=== PATIENT | male | born 1985 ===

== ENCOUNTER 2016-08-24 11:53 | Emergency (ER) | payer OTHER ==
[2016-08-24 11:55] VITALS: BMI 28.8
[2016-08-24 11:57] VITALS: TEMP 98.6
[2016-08-24 14:23] LABS: RBC URINE < 1 /hpf (0-3); URINE BILIRUBIN NEGATIVE (NEGATIVE); URINE BLOOD NEGATIVE (NEGATIVE); URINE COLOR STRAW (YELLOW); URINE GLUCOSE (UA) NEG (Normal); URINE KETONE NEGATIVE (NEGATIVE); URINE LEUKOCYTE ESTERASE NEG Leu/uL (Negative); URINE PROTEIN NEGATIVE (NEGATIVE); URINE UROBILINOGEN 0.2-1.0 mg/dL (0.2-1.0); WBC URINE < 1 /hpf (0-5)
--- NOTE | 2016-08-24 16:14 | US ---
HISTORY: R testicular pain TECHNIQUE: Realtime sonography through the scrotum with color and doppler flow. COMPARISON: None Available. FINDINGS: RIGHT TESTICLE: Right testicle measures approximately 4.7 x 2.3 x 3.2 cm. Normal echotexture and flow. RIGHT EPIDIDYMIS: Epididymal head measures approximately 0.8 x 0.7 x 0.9 cm . There is a small epididymal cyst that measures 5 mm occulta mentions likely representing a small spermatocele. . Normal flow. LEFT TESTICLE: Left testicle measures approximately 4.6 x 2.0 x 2.9 cm cm. Normal echotexture and flow. LEFT EPIDIDYMIS: Epididymal head measures approximately 1.0 x 0.6 x 0.7 cm cm. Grossly unremarkable appearance with normal flow. HYDROCELE: None. VARICOCELE: None. OTHER FINDINGS: None. IMPRESSION: Small cystic focus right epididymis likely representing a spermatocele. No evidence of torsion.
--- NOTE | 2016-08-24 18:17 | ED PDOC ---
HPI: Male Pain Time Seen by Provider: 08/24/16 12:16 Chief Complaint (Nursing): Male Genitourinary Chief Complaint (Provider): R testicular pain History Per: Patient History/Exam Limitations: no limitations Onset/Duration Of Symptoms: Days (7) Current Symptoms Are (Timing): Intermittent Episodes Quality Of Discomfort: Sharp Associated Symptoms: denies: Nausea, Vomiting, Diarrhea, Loss Of Appetite Alleviating Factors: None Additional Complaint(s): 31yo male c/o left testicular pain ongoing intermittently for 7 days. Denies urinary symptoms. Denies nausea/vomiting or diarrhea. Denies history of STDs. Denies trauma, penile discharge or hematuria. Past Medical History Reviewed: Historical Data, Nursing Documentation, Vital Signs Vital Signs: Last Vital Signs Temp 98.6 F 08/24/16 11:55 Pulse 108 H 08/24/16 11:55 Resp 19 08/24/16 11:55 BP 140/89 08/24/16 11:55 Pulse Ox 99 08/24/16 11:55 - Medical History PMH: No Chronic Diseases - Surgical History Surgical History: No Surg Hx - Family History Family History: States: Unknown Family Hx - Social History Current smoker - smoking cessation education provided: No - Home Medications Home Medications: Ambulatory Orders Medication Instructions Recorded Docusate Sodium [Colace] 100 mg PO BID PRN #10 capsule 08/27/16 oxyCODONE/Acetaminophen [Percocet 1 tab PO Q6H PRN #5 tab 08/27/16 5/325 mg Tab] - Allergies Allergies/Adverse Reactions: Allergies Allergy/AdvReac Type Severity Reaction Status Date / Time No Known Allergies Allergy Verified 08/27/16 12:01 Review of Systems ROS Statement: Except As Marked, All Systems Reviewed And Found Negative Constitutional: Negative for: Fever, Chills Cardiovascular: Negative for: Chest Pain, Palpitations Respiratory: Negative for: Cough, Hemoptysis Gastrointestinal: Negative for: Vomiting, Abdominal Pain Genitourinary Male: Positive for: Scrotal Pain Musculoskeletal: Negative for: Neck Pain, Shoulder Pain Skin: Negative for: Rash, Lesions, Jaundice Neurological: Negative for: Weakness, Numbness - ECG O2 Sat by Pulse Oximetry: 99 Medical Decision Making Medical Decision Making: bloodwork reviewed and unremarkable/ Testicular US report reviewed. CT report reviewed, +inguinal hernia without signs of incarceration. Referred to clinic for surgical eval. Disposition - Clinical Impression Clinical Impression: Inguinal hernia - Patient ED Disposition Is Patient to be Admitted: No Counseled Patient/Family Regarding: Studies Performed, Diagnosis, Need For Followup, Rx Given - Disposition Referrals: Kirti Zee MD [Staff Provider] - Disposition: Routine/Home Disposition Time: 18:04 Condition: STABLE Additional Instructions: See surgeon for further testing and treatment for your inguinal hernia. Return to ER for any worse or new symptoms. Instructions: Inguinal Hernia (ED) Print Language: ROMANIAN
--- NOTE | 2016-08-24 18:59 | CT ---
PROCEDURE: CT Abdomen and Pelvis without intravenous contrast HISTORY: R groin pain r/o hernia COMPARISON: None. TECHNIQUE: Technique. Contrast Dose: Radiation dose: Total exam DLP = 622 mGy-cm. This CT exam was performed using one or more of the following dose reduction techniques: Automated exposure control, adjustment of the mA and/or kV according to patient size, and/or use of iterative reconstruction technique. FINDINGS: LOWER THORAX: Unremarkable. LIVER: Unremarkable. No gross lesion or ductal dilatation. GALLBLADDER AND BILE DUCTS: Unremarkable. PANCREAS: Unremarkable. No gross lesion or ductal dilatation. SPLEEN: Unremarkable. ADRENALS: Unremarkable. No mass. KIDNEYS AND URETERS: Unremarkable. No hydronephrosis. No solid mass. VASCULATURE: Unremarkable. No aortic aneurysm. BOWEL: Unremarkable. No obstruction. No gross mural thickening. APPENDIX: Unremarkable. Normal appendix. PERITONEUM: Unremarkable. No free fluid. No free air. LYMPH NODES: Unremarkable. No enlarged lymph nodes. BLADDER: Unremarkable. REPRODUCTIVE: Unremarkable. BONES: No acute fracture. OTHER FINDINGS: Minimal right inguinal hernia containing omental fat. IMPRESSION: Minimal right inguinal hernia containing omental fat.
[2016-08-24 19:46] VITALS: BP 125/80; PULSE 75; RESP 16
[2016-09-06 16:18] VITALS: O2SAT 99
== END 2016-08-24 19:46 | disposition home or self-care (01) ==
LOC: H.ER 11:53
DX: K40.90 Unilateral inguinal hernia, without obstruction or gangrene, not specified as recurrent (principal)

== ENCOUNTER 2016-08-27 11:54 | Emergency (ER) | payer OTHER ==
[2016-08-27 11:54] VITALS: BMI 28.8
[2016-08-27 12:05] VITALS: BP 134/70; PULSE 104; RESP 16; TEMP 98.5; O2SAT 99
[2016-08-27] MEDS ORDERED: Sodium Chloride 0.9% 1,000 ML IV STA (12:42)
--- NOTE | 2016-08-27 13:20 | ED PDOC ---
HPI: Abdomen Time Seen by Provider: 08/27/16 12:00 Chief Complaint (Nursing): Abdominal Pain Chief Complaint (Provider): Abdominal Pain History Per: Patient History/Exam Limitations: no limitations Onset/Duration Of Symptoms: Days Current Symptoms Are (Timing): Still Present Severity: Mild Location Of Pain/Discomfort: Suprapubic Associated Symptoms: denies: Fever, Nausea, Vomiting, Diarrhea, Urinary Symptoms Exacerbating Factors: None Additional Complaint(s): Patient is a 31 year old male who presents to ED for right inguinal pain for awhile. States that he was evaluated in ED on Saturday, U/S and CT-abdomen performed, showing (+) small right inguinal hernia. Patient was referred to Dr. Zee as outpt but no pain medication was given. States pain continues and he does not have insurance for follow up. Denies vomiting or fever. Notes mild constipation Past Medical History Reviewed: Historical Data, Nursing Documentation, Vital Signs Vital Signs: Last Vital Signs Temp 98.5 F 08/27/16 12:02 Pulse 104 H 08/27/16 12:02 Resp 16 08/27/16 12:02 BP 134/70 08/27/16 12:02 Pulse Ox 99 08/27/16 14:38 - Medical History PMH: No Chronic Diseases - Surgical History Surgical History: No Surg Hx - Family History Family History: States: Unknown Family Hx - Social History Current smoker - smoking cessation education provided: No Alcohol: None Drugs: Denies - Home Medications Home Medications: Ambulatory Orders Medication Instructions Recorded Docusate Sodium [Colace] 100 mg PO BID PRN #10 capsule 08/27/16 oxyCODONE/Acetaminophen [Percocet 1 tab PO Q6H PRN #5 tab 08/27/16 5/325 mg Tab] - Allergies Allergies/Adverse Reactions: Allergies Allergy/AdvReac Type Severity Reaction Status Date / Time No Known Allergies Allergy Verified 08/27/16 12:01 Review of Systems ROS Statement: Except As Marked, All Systems Reviewed And Found Negative Constitutional: Negative for: Fever Gastrointestinal: Positive for: Abdominal Pain, Constipation. Negative for: Vomiting, Diarrhea Genitourinary Male: Negative for: Dysuria, Hematuria Physical Exam - Reviewed Nursing Documentation Reviewed: Yes Vital Signs Reviewed: Yes - Physical Exam Appears: Positive for: Non-toxic, No Acute Distress Skin: Positive for: Normal Color, Warm Eye Exam: Positive for: Normal appearance Neck: Positive for: Normal, Painless ROM Cardiovascular/Chest: Positive for: Regular Rate, Rhythm. Negative for: Murmur Respiratory: Positive for: Normal Breath Sounds. Negative for: Respiratory Distress Gastrointestinal/Abdominal: Positive for: Bowel Sounds, Soft, Hernia (right inguinal). Negative for: Tenderness, Distended, Guarding, Rebound Back: Positive for: Normal Inspection Extremity: Positive for: Normal ROM Neurologic/Psych: Positive for: Alert, Oriented - Laboratory Results Result Diagrams: 08/27/16 13:09 08/27/16 13:09 - ECG O2 Sat by Pulse Oximetry: 99 (RA) Pulse Ox Interpretation: Normal Medical Decision Making Medical Decision Making: Time: 1240 Initial impression: Abdominal pain Initial plan: -- CMP -- Lipase -- CBC -- NSF and Toradol -- Urine culture -- U/A Scribe Attestation: Documented by Hodan Renae acting as a scribe for Guerda Rciketts MD. Scribwang Attestation: All medical record entries made by the Scribe were at my direction and personally dictated by me. I have reviewed the chart and agree that the record accurately reflects my personal performance of the history, physical exam, medical decision making, and the department course for this patient. I have also personally directed, reviewed, and agree with the discharge instructions and disposition. Time: 14:35 --Labs and urine were benign and show no significant abnormalities. --Patient feels better and was advised to follow up for the hernia. pain edications were also prescribed. pt given referral to outpt clinic where there are specialists including surgeons. instructed to return if pain worsens or any acute change develops pt agreeable to plan Upon provider reevaluation patient is feeling better, is medically stable, and requires no further treatment in the ED at this time. Patient will be discharged home with Rx for Colace 100 mg and Percocet 5/325 mg. Counseling was provided and all questions were answered regarding diagnosis and need for follow up with referred clinics. There is agreement to discharge plan. Return if symptoms persist or worsen. Clinical Impression: Hernia Scribe Attestation: Documented by Pam Russell acting as a scribe for Guerda Ricketts MD. Scribwang Attestation: All medical record entries made by the Scribe were at my direction and personally dictated by me. I have reviewed the chart and agree that the record accurately reflects my personal performance of the history, physical exam, medical decision making, and the department course for this patient. I have also personally directed, reviewed, and agree with the discharge instructions and disposition. Disposition - Clinical Impression Clinical Impression: Hernia - Patient ED Disposition Is Patient to be Admitted: No Counseled Patient/Family Regarding: Studies Performed, Diagnosis, Need For Followup - Disposition Referrals: [facility] [Outside] [facility] [Outside] Disposition: Routine/Home Disposition Time: 14:35 Condition: IMPROVED Additional Instructions: follow up with [facility] and clinic for surgical management return to the ED with any worsening or concerning symptoms. Prescriptions: Docusate Sodium [Colace] 100 mg PO BID PRN #10 capsule PRN Reason: Constipation oxyCODONE/Acetaminophen [Percocet 5/325 mg Tab] 1 tab PO Q6H PRN #5 tab PRN Reason: Pain, Moderate (4-7) Instructions: Inguinal Hernia (ED) Print Language: KOREAN
[2016-08-27 13:31] LABS: ALB/GLOB RATIO 1.4 (1.0-2.1); ALKALINE PHOSPHATASE 95 U/L (38-126); ALT/SGPT 39 U/L (21-72); AST/SGOT 32 U/L (17-59); BILIRUBIN,TOTAL 0.4 mg/dl (0.2-1.3); BLOOD UREA NITROGEN 14 mg/dl (9-20); CALCIUM 9.9 mg/dL (8.4-10.2); CARBON DIOXIDE 27 mmol/L (22-30); CHLORIDE 102 mmol/L (98-107); GFR AFRICAN-AMERICAN > 60; GLUCOSE,RANDOM 146 mg/dL (75-110); LIPASE 28 U/L (23-300); POTASSIUM 3.9 MMOL/L (3.6-5.0); SODIUM 142 mmol/l (132-148); TOTAL PROTEIN 8.4 G/DL (6.3-8.2)
[2016-08-27 13:32] LABS: BASO % 0.5 % (0.0-2.0); EOS % 0.5 % (0.0-4.0); HEMATOCRIT 49.3 % (35.0-51.0); LYMPH # 1.3 K/uL (1.0-4.3); LYMPH % 17.7 % (20.0-40.0); MEAN CORPUSCULAR HEMOGLOBIN 28.6 pg (27.0-31.0); MEAN CORPUSCULAR HGB CONC 32.9 g/dL (33.0-37.0); MONO # 0.4 K/uL (0.0-0.8); MONO % 5.1 % (0.0-10.0); NEUT # 5.5 K/uL (1.8-7.0); NEUT % 76.2 % (50.0-75.0); NRBC % 0.1 % (0.0-0.0); RED CELL DISTRIBUTION WIDTH 12.9 % (11.5-14.5); WHITE BLOOD COUNT 7.2 K/uL (4.8-10.8)
[2016-08-27 13:33] LABS: RBC URINE 1 /hpf (0-3); URINE BILIRUBIN NEGATIVE (NEGATIVE); URINE BLOOD NEGATIVE (NEGATIVE); URINE COLOR YELLOW (YELLOW); URINE GLUCOSE (UA) NEG (Normal); URINE KETONE NEGATIVE (NEGATIVE); URINE LEUKOCYTE ESTERASE NEG Leu/uL (Negative); URINE PROTEIN NEGATIVE (NEGATIVE); URINE UROBILINOGEN 0.2-1.0 mg/dL (0.2-1.0); WBC URINE 1 /hpf (0-5)
== END 2016-08-27 15:33 | disposition home or self-care (01) ==
LOC: H.ER 11:54
DX: K46.0 Unspecified abdominal hernia with obstruction, without gangrene (principal); K59.00 Constipation, unspecified